=== PATIENT | male | born 1965 | race Hispanic/Latino ===

== ENCOUNTER 2018-02-02 15:02 | Emergency (ER) | payer SELFPAY ==
[2018-02-02] MEDS ORDERED: CEFAZOLIN SOD 1 GM VIAL IV STA (15:19)
[2018-02-02] MEDS ORDERED: LIDOCAINE HCL 1% LOCAL INJ 20 ML VIAL INJ ONE (15:30)
[2018-02-02] MEDS ORDERED: TETANUS/DIPHTHERIA TOX ADULT 0.5 ML SYR IM ONE (15:30)
[2018-02-02] MEDS ORDERED: LIDOCAINE 1% W/EPINEPHRINE 20 ML VIAL INJ ONE (15:30)
[2018-02-02] MEDS ORDERED: HYDROCODONE/APAP 10MG-325MG TAB PO ONE (16:00)
--- NOTE | 2018-02-02 17:02 | Diagnostic Imaging Report ---
PROCEDURE:X-RAY LEFT FINGER COMPARISON:None. INDICATIONS:LF THRID FINGER PAIN FINDINGS: 3 views of the left little finger (AP, lateral, and oblique). There is a comminuted fracture through the distal tuft of the distal phalanx of the middle finger. There is mild ulnar displacement of the distal fracture fragment. No other fractures are identified. CONCLUSION: As above Dictated by: Leonard Golden M.D. on 02/02/2018 at 17:03 Electronically approved by: Leonard Golden M.D. on 02/02/2018 at 17:03
[2018-02-02 17:56] VITALS: BP 137/82
== END 2018-02-02 18:07 | disposition home or self-care (01) ==
LOC: ER 15:02
CPT/HCPCS: 90714; 99284; J0690; J2001